=== PATIENT | female | born 1945 | race Caucasian/White ===

== ENCOUNTER → 2017-03-25 | Outpatient (CLI) | payer MEDICARE, BC ==
[~2017-03-25] MED LIST: CETI10TA18 PO; CLOP75TA PO; CLOP75TA22 PO; CYAN25009 INJ; DOXY100T PO; FENO135C4 PO; FLUT16SP NAS; FLUT1BLS INH; LEVO125T5 PO; LEVO137T3 PO; LISI5TAB7 PO; PANT40TA5 PO; REGADENOSON 0.4 MG/5 ML SYRINGE ONE; ROSU40TA PO
== END | disposition home or self-care (01) ==
LOC: CFH 07:56
PROVIDERS: ATTEND Internal Medicine Cardiovascular Disease
DX: Z01.810 Encounter for preprocedural cardiovascular examination (principal); I25.9 Chronic ischemic heart disease, unspecified
CPT/HCPCS: 78452; 93017; A9502; J2785

== ENCOUNTER → 2017-12-17 | Outpatient (CLI) | payer MEDICARE, BC ==
[~2017-12-17] MED LIST changes: -CLOP75TA22 PO; +CLOP75TA52 PO; -REGADENOSON 0.4 MG/5 ML SYRINGE ONE
== END | disposition home or self-care (01) ==
LOC: CFH 12:23
PROVIDERS: ATTEND Internal Medicine
DX: Z12.31 Encounter for screening mammogram for malignant neoplasm of breast (principal)
CPT/HCPCS: 77067

== ENCOUNTER → 2018-12-18 | Outpatient (CLI) | payer MEDICARE, BC | END | disposition home or self-care (01) | LOC: CFH 10:52 | PROVIDERS: ATTEND Internal Medicine | DX: Z12.31 Encounter for screening mammogram for malignant neoplasm of breast (principal) | CPT/HCPCS: 77067 ==

== ENCOUNTER → 2019-03-16 | Outpatient (CLI) | payer MEDICARE, BC ==
[~2019-03-16] MED LIST changes: -FLUT16SP NAS; +FLUT16SP24 NAS
== END | disposition home or self-care (01) ==
LOC: CFH 08:56
PROVIDERS: ATTEND Internal Medicine
DX: Z13.820 Encounter for screening for osteoporosis (principal); N95.9 Unspecified menopausal and perimenopausal disorder
CPT/HCPCS: 77080

== ENCOUNTER → 2019-03-17 | Outpatient (CLI) | payer MEDICARE, BC | END | disposition home or self-care (01) | LOC: CFH 13:44 | DX: Z12.2 Encounter for screening for malignant neoplasm of respiratory organs (principal); J84.10 Pulmonary fibrosis, unspecified; Z87.891 Personal history of nicotine dependence | CPT/HCPCS: G0297 ==

== ENCOUNTER 2020-02-08 10:15 | Outpatient (CLI) | payer MEDICARE, BC | END 2020-02-08 23:59 | disposition home or self-care (01) | LOC: CFH 10:15 | PROVIDERS: ATTEND Internal Medicine | DX: Z12.31 Encounter for screening mammogram for malignant neoplasm of breast (principal) | CPT/HCPCS: 77067 ==

== ENCOUNTER 2020-12-08 08:39 | Outpatient (CLI) | payer MEDICARE, BC ==
[~2020-12-08 08:39] MED LIST changes: -PANT40TA5 PO; +PANT40TA6 PO
== END 2020-12-08 23:59 | disposition home or self-care (01) ==
LOC: CFH 08:39
PROVIDERS: ATTEND Internal Medicine
DX: N60.02 Solitary cyst of left breast (principal); N63.20 Unspecified lump in the left breast, unspecified quadrant
CPT/HCPCS: 76642; 77062; 77066; G0279

== ENCOUNTER 2020-12-21 06:30 | Day surgery (SDC) | payer MEDICARE, BC ==
[~2020-12-21] VITALS: Ht 170.2 cm; Wt 90.9 kg
[2020-12-21] MEDS ORDERED: LIDOCAINE 2%, 20ML ONE (06:41)
== END 2020-12-21 08:46 | disposition home or self-care (01) ==
LOC: CACL 06:30
PROVIDERS: ATTEND Internal Medicine Cardiovascular Disease
DX: Z45.09 Encounter for adjustment and management of other cardiac device (principal); Q21.1 Atrial septal defect; I12.9 Hypertensive chronic kidney disease with stage 1 through stage 4 chronic kidney disease, or unspecified chronic kidney disease; N18.30 Chronic kidney disease, stage 3 unspecified; J45.909 Unspecified asthma, uncomplicated; E53.8 Deficiency of other specified B group vitamins; E89.0 Postprocedural hypothyroidism; K21.9 Gastro-esophageal reflux disease without esophagitis; E78.2 Mixed hyperlipidemia; E66.3 Overweight; Z68.36 Body mass index [BMI] 36.0-36.9, adult; Z79.82 Long term (current) use of aspirin; Z79.890 Hormone replacement therapy; Z79.899 Other long term (current) drug therapy; Z86.718 Personal history of other venous thrombosis and embolism; Z90.49 Acquired absence of other specified parts of digestive tract; Z91.018 Allergy to other foods; Z98.890 Other specified postprocedural states; Z80.1 Family history of malignant neoplasm of trachea, bronchus and lung; Z82.49 Family history of ischemic heart disease and other diseases of the circulatory system
CPT/HCPCS: 33285; 33286; C1764

== ENCOUNTER → 2021-01-30 | Outpatient (CLI) | payer MEDICARE, BC ==
[~2021-01-30] MED LIST changes: +REGADENOSON 0.4 MG/5 ML SYRINGE ONE
== END | disposition home or self-care (01) ==
LOC: CFH 07:50
PROVIDERS: ATTEND Internal Medicine Cardiovascular Disease
DX: I49.3 Ventricular premature depolarization (principal); R06.00 Dyspnea, unspecified; Q21.1 Atrial septal defect; R60.9 Edema, unspecified; E78.5 Hyperlipidemia, unspecified
CPT/HCPCS: 78452; 93017; A9502; J2785

== ENCOUNTER 2021-02-06 11:14 | Emergency (ER) | payer MEDICARE, BC ==
[~2021-02-06] VITALS: Ht 172.7 cm; Wt 98.9 kg
[~2021-02-06 11:14] MED LIST changes: -REGADENOSON 0.4 MG/5 ML SYRINGE ONE
[2021-02-06 12:07] LABS: BASOPHILS % (AUTO) 1 % (0-1); EOSINOPHILS % (AUTO) 2 % (1-7); LYMPHOCYTES % (AUTO) 16 % (22-44); MD NO; MEAN CORPUSCULAR HEMOGLOBIN 33.6 pg (27.0-34.8); MEAN CORPUSCULAR HGB CONC 34.4 g/dL (32.4-35.8); MEAN PLATELET VOLUME 7.7 fL (7.4-10.4); MONOCYTES % (AUTO) 6 % (2-9); NEUTROPHILS % (AUTO) 75 % (42-75); PLATELET COUNT 255 x10^3/uL (130-400); RED BLOOD COUNT 4.18 x10^6/uL (3.82-5.3); RED CELL DISTRIBUTION WIDTH 12.9 % (9.6-15.2)
[2021-02-06 12:15] LABS: ALBUMIN 3.6 g/dL (3.4-5.0); ANION GAP 3 mmol/L (5-15); CALCIUM 9.4 mg/dL (8.5-10.1); CHLORIDE 110 mmol/L (98-107); CREATININE 1.04 mg/dL (0.55-1.02)
[2021-02-06 12:18] LABS: TROPONIN I < 0.015 ng/mL (0.000-0.045)
--- NOTE | 2021-02-06 13:51 | NUR ---
ASSUMED CARE OF PT. SHE WAS PREVIOUSLY SEEN FOR ABD PAIN IN ED AND IT HAS NOT RESOLVED. D/T PT HX OF PERNICIOUS ANEMIA, HER SX (ABD PAIN, JOINT PAIN, SOB, FATIGUE, HARD TIME CONCENTRATING), IS HERE TO GET CHECKED OUT AND THINKS SHE IS NOT RECEIVING CORRECT DOSE OF SUBLINGUAL VITAMIN B12. PT HOOKED TO MONITOR, VSS, NADN, CALL LIGHT W/IN REACH.
[2021-02-06 14:43] VITALS: BP 133/62
--- NOTE | 2021-02-06 14:46 | NUR ---
PT PRESSED CALL LIGHT, STATING "IT HAS BEEN 40 MINUTES SINCE BEING IN THIS ROOM, WHAT IS THE PLAN?" APOLOGIZED TO PT EXPLAINING ITS A BUSY DAY AND THE MD ARE BEHIND. CHECKED IN W/ MD WHO SAID EVERYTHING CAME BACK NORMAL AND WILL CHECK SHORTLY.
--- NOTE | 2021-02-06 15:43 | NUR ---
bottle feeder ambulated pt oxygen saturation charted, and MD updated.
--- NOTE | 2021-02-06 15:49 | NUR ---
ROUNDED ON PT TO UPDATE THAT WE NEEDED PAPERWORK AND PT WAS NOT IN HER ROOM. SHE KNEW MD WAS DCING HER AND TALKED W/ MD. SHE DIDN'T RECEIVE PAPERWORK.
== END 2021-02-06 16:04 | disposition home or self-care (01) ==
LOC: ED 15:18
DX: R06.00 Dyspnea, unspecified (principal); R42 Dizziness and giddiness; R53.1 Weakness; R07.9 Chest pain, unspecified; I10 Essential (primary) hypertension; E03.9 Hypothyroidism, unspecified; Z86.73 Personal history of transient ischemic attack (TIA), and cerebral infarction without residual deficits; Z86.718 Personal history of other venous thrombosis and embolism; Z90.710 Acquired absence of both cervix and uterus
CPT/HCPCS: 36415; 71045; 80048; 82040; 83880; 84484; 85025; 93005; 99285

== ENCOUNTER → 2021-02-08 | Outpatient (CLI) | payer MEDICARE, BC | END | disposition home or self-care (01) | LOC: CVU 13:30 | PROVIDERS: ATTEND Internal Medicine Cardiovascular Disease | DX: I08.3 Combined rheumatic disorders of mitral, aortic and tricuspid valves (principal); Q21.1 Atrial septal defect; E78.5 Hyperlipidemia, unspecified; I10 Essential (primary) hypertension; I82.890 Acute embolism and thrombosis of other specified veins; I83.92 Asymptomatic varicose veins of left lower extremity | CPT/HCPCS: 93306; 93970 ==